=== PATIENT | male | born 1995 | race Two or more races ===

== ENCOUNTER → 2016-05-26 | Outpatient (CLI) | payer OTHER ==
--- NOTE | 2016-05-26 17:17 | REP ---
Clinical: Crush injury. Technique: AP, lateral, bilateral oblique views of the right fifth digit. Findings: The osseous structures and joint spaces appear intact and normal. No acute fracture or dislocation identified. No foreign body. Impression: No acute fracture or dislocation. Signed by Jorge Luis Acuna MD 05/26/2016 05:09 P
== END ==
LOC: M LRY 16:54
PROVIDERS: ATTEND Physician Assistant
DX: S67.10XA Crushing injury of unspecified finger(s), initial encounter (principal); X58.XXXA Exposure to other specified factors, initial encounter; Y92.89 Other specified places as the place of occurrence of the external cause

== ENCOUNTER → 2016-12-03 | Outpatient (REF) | payer OTHER ==
[2016-12-03 10:08] LABS: % NORMAL FORMS 6 % (>=4); IMMOTILITY 58 %; NON PROGRESSIVE MOTILITY (c) 11 %; PROGRESSIVE MOTILITY (a) 31 % (>=32); TOTAL MOTILITY 42 % (>=40); TOTAL PROGRESSIVE SPERM 49.5 M/Ejac.
[2016-12-03 10:09] LABS: TOTAL FUNCTIONAL 7.2 M/Ejac.
[2017-01-02 11:52] LABS: SPERM# 158.9 M/Ejac (>=39)
== END ==
LOC: M LAB REF 09:18
PROVIDERS: ATTEND Nurse Practitioner Family
DX: Z31.41 Encounter for fertility testing (principal)

== ENCOUNTER → 2019-12-23 | Outpatient (CLI) | payer OTHER ==
--- NOTE | 2019-12-29 13:38 | SLEEPCENT ---
DATE: 12/23/2019 ORDERED BY: MELVIN Cannon Nocturnal polysomnography was performed for evaluation of sleep physiology in this patient with a history of snoring, irregular breathing in sleep and nonrestorative sleep complicated by chronic pain and depressive disorder. Eight hours and 37 minutes of data were reviewed. There were 480.5 minutes of sleep identified. Sleep latency was mildly delayed at 31.5 minutes, REM latency likewise at 117.5 minutes. Sleep architecture was fair with five REM cycles. Some fragmentation of sleep was appreciated. Overall sleep efficiency was good at 93.8%. The electrocardiogram showed a sinus rhythm with an average heart rate of 52 beats per minute. EEG showed mild coarsening in background. There was some artifact in the frontal leads. No focal events were appreciated and there were normal waveforms for wake and sleep stages. There were 32 respiratory events identified of 10 seconds in duration or greater for an apnea-hypopnea index of 5.2. The events were not stage-related nor were they related to changes in body posture. Arousals from respiratory events occurred only 1.2 times per hour, and there were two brief desaturations below 90%. Snoring was noted over the entire study. Some minor activity is appreciated in the limb leads. IMPRESSIONS: Mild obstructive sleep apnea syndrome (G47.33). Apnea-hypopnea index 5.2. RECOMMENDATION: The patient may benefit from interventions to optimize upper airway tone and patency. Depending on the severity of sleep symptoms, a referral [facility] to [facility] for [facility] could be considered. [facility]
== END ==
LOC: M SLEEP 20:00
PROVIDERS: ATTEND Nurse Practitioner Family
DX: G47.33 Obstructive sleep apnea (adult) (pediatric) (principal)